=== PATIENT | female | born 1975 | race Caucasian/White ===

== ENCOUNTER → 2017-03-25 | Outpatient (CLI) | payer OTHER ==
[~2017-03-25] VITALS: Ht 172.7 cm; Wt 90.3 kg
[~2017-03-25] MED LIST: ACYCLOVIR 400400 MG PO; ALEVE220 MG PO; AUGMENTIN 875875 MG PO; BUTRANS1 EAC1 TD; CARBAMAZEPINE100 MG PO; COLACE100 MG PO; FLEXERIL PO; GLUCOPHAGE1000 MG PO; GRALISE600 MG PO; HYDROCODONE-AP1 EAC6 PO; JANUVIA100 MG PO; LISINOPRIL5 MG PO; LYRICA 50 MG50 MG PO; METFORMIN HCL500 MG PO; NEURONTIN 300300 M1 PO; NORTRIPTYLINE H50 M3 PO; NORTRIPTYLINE H50 MG PO; PAMELOR25 MG PO; PRAVACHOL20 MG PO; ROBAXIN 750 MG750 M1 PO; WOMEN'S DAILY1 EAC1 PO
--- NOTE | ~2017-03-25 | HPC ---
[facility] [place] [address] PAIN MANAGEMENT CONSULTATION Name: LUIZA ARROYO Room #: REG [facility] Dia#: [id number] Admission: 03/25/17 Attend Phys: Alberto Galdamez DO Discharge: Date of : 73 Report #: [id number] THIS REPORT FOR: //name// CC: Dawna Galdamez DATE OF SERVICE: 03/25/2017 CHIEF COMPLAINT: Neck pain, left upper extremity pain and paresthesias. HISTORY OF PRESENT ILLNESS: 1. As you know, the patient is a 42-year-old female who returns today in followup visit requesting medication management. She had plans to undergo surgery of the foot, but this was subsequently delayed due to changes in the patient's insurance coverage. Plans are now delayed for nearly 6 months. 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 She wishes to continue this medication. She returns for refills of nortriptyline. She indicates only side effect she is experiencing at present is some excessive dry mouth, but otherwise tolerating medication well. She returns requesting refills of the medication for the next 3 months. 2. The patient was provided prescription of nortriptyline 50 mg dose 2 tabs p.o. at bedtime, total of 100 mg p.o. at bedtime, she was given #180 tablets, which is 3 months' worth of medication, no refills. 3. The patient will return to our clinic in 3 months for medication management. At that time, we will review efficacy of the medication and determine if any other changes might be necessary. By: [id number] Alberto Galdamez DO /nt
[2017-03-25 08:07] VITALS: BP 122/83
== END ==
LOC: PAIN 06:29
DX: M54.2 Cervicalgia (principal); M79.602 Pain in left arm; R20.9 Unspecified disturbances of skin sensation